=== PATIENT | male | born 1965 | race Two or more races ===

== ENCOUNTER 2019-05-04 06:17 | Day surgery (SDC) | payer OTHER ==
[~2019-05-04] VITALS: Ht 170.2 cm; Wt 90.7 kg
[2019-05-04] VITALS (9 sets, daily range): BP systolic 103–134; BP diastolic 70–83
[~2019-05-04 06:17] MED LIST: NKM; ceFAZolin 1gm IVPB IVPB ONE; celeBREX 200mg Cap **SURGERY PATIENTS ONLY ORAL ONE; oxyCONTIN 20mg tab ORAL ONE
--- NOTE | 2019-05-04 07:32 | Pre-Procedure Note/Attestation ---
Pre-Procedure Note/Attestation Complete Prior to Procedure Planned Procedure: right Procedure Narrative: knee arthroscopy, possible menisectomy, synovectomy Indications for Procedure Pre-Operative Diagnosis: left knee internal deragment Attestation I attest that I discussed the nature of the procedure; its benefits; risks and complications; and alternatives (and the risks and benefits of such alternatives ), prior to the procedure, with the patient (or the patient's legal financial foundations representative). I attest that, if there was a reasonable possibility of needing a blood transfusion, the patient (or the patient's legal financial foundations representative) was given the [facility] standardized written summary, pursuant to the Ervin Isai Blood Safety Act ([place] Health and Safety Code # 1645, as amended). I attest that I re-evaluated the patient just prior to the surgery and that there has been no change in the patient's H&P, except as documented below: Hudson Melchor MD May 04, 2019 07:32
--- NOTE | 2019-05-04 07:32 | Operative Note - PDOC ---
Operative Note Operative Note Pre-op Diagnosis: left knee internal deragment Procedure: see op report Post-op Diagnosis: same as pre-op plus Operative Findings: consistent w/pre-op dx studies Anesthesia: MAC Specimen: none Complications: none Condition: stable Estimated Blood Loss: none Implant(s) used?: No Hudson Melchor MD May 04, 2019 07:32
[2019-05-04] MEDS ORDERED: LR 1000ml 1,000 ML IVLG SCH (07:43)
--- NOTE | 2019-05-04 07:43 | Anethesia Preoperative Eval ---
Anesthesia Pre-op PMH/ROS General Date of Evaluation: May 04, 2019 Anesthesiologist: Heather ASA Score: ASA 2 Mallampati Score Class I : Soft palate, uvula, fauces, pillars visible Class II: Soft palate, uvula, fauces visible Class III: Soft palate, base of uvula visible Class IV: Only hard plate visible Mallampati Classification: Class III Surgeon: Ruiz Diagnosis: right knee pain Surgical Procedure: right knee athroscopy Anesthesia History: none Family History: no anesthesia problems Allergies: Coded Allergies: No Known Allergies (Unverified , 05/01/19) Medications: see eMAR Patient NPO?: Yes NPO Date: May 03, 2019 NPO Time: 22:00 Past Medical History Cardiovascular: Denies: HTN, CAD, MT, valve dz, arrhythmia, other Pulmonary: Denies: asthma, COPD, NICK, other Gastrointestinal/Genitourinary: Reports: GERD; Denies: CRI, ESRD, other Neurologic/Psychiatric: Denies: dementia, CVA, depression/anxiety, TIA, other Endocrine: Denies: DM, hypothyroidism, steroids, other HEENT: Denies: cataract (L), cataract (R), glaucoma, [place] (L), [place] (R), other Hematology/Immune: Denies: anemia, DVT, bleeding disorder, other Musculoskeletal/Integumentary: Denies: OA, RA, DJD, DDD, edema, other Other: obesity PSxH Narrative: right corneal transplant Anesthesia Pre-op Phys. Exam Physician Exam Last Vital Signs Date Time Temp Pulse Resp B/P (MAP) Pulse Ox O2 Delivery O2 Flow Rate FiO2 05/04/19 07:15 Room Air 05/04/19 07:06 97.8 54 18 123/70 95 Constitutional: NAD, other - bulging left eye=baseline as per patient Cardiovascular: RRR Respiratory: CTA Airway Exam Mallampati Score: Class III MO: limited ROM: limited Anesthesia Pre-op A/P Labs see chart Studies Pre-op Studies: EKG - sr Risk Assessment & Plan Assessment: ASA II Plan: GA Status Change Before Surgery: No Pre-Antibiotics Drug: Ancef 2g Given Within 1 Hr of Incision: Yes Monse Pollack MD May 04, 2019 07:43
[2019-05-04] MEDS ORDERED: Tylenol #3 tab (300mg/30mg) ORAL PRN (07:45)
[2019-05-04] MEDS ORDERED: Metoclopramide 10mg/2ml Inj IVP PRN (07:45)
[2019-05-04] MEDS ORDERED: Hydromorphone 0.5mg/0.5ml inj IVP PRN (07:45)
[2019-05-04] MEDS ORDERED: D5 1/2NS 1,000 ML IV SCH (07:45)
[2019-05-04] MEDS ORDERED: Midazolam 2mg/2ml Inj IVP PRN (07:45)
[2019-05-04] MEDS ORDERED: fentaNYL 100 mcg/2 mL IV PRN (07:45)
[2019-05-04] MEDS ORDERED: Ketorolac 30mg Inj IV PRN (07:45)
[2019-05-04] MEDS ORDERED: HYDROcodone/Acetamin 5/325 tab ORAL PRN (07:45)
[2019-05-04] MEDS ORDERED: HYDROmorphone 1mg/ml Carpuject SUBQ PRN (07:45)
[2019-05-04] MEDS ORDERED: DiphenhydrAMINE 50mg/ml Inj IVP PRN (07:45)
[2019-05-04] MEDS ORDERED: LORazepam Inj 2mg/ml 1ml IV PRN (07:45)
[2019-05-04] MEDS ORDERED: Ketorolac 30mg Inj ONE (08:28)
[2019-05-04] MEDS ORDERED: Duramorph PF 5mg/10ml amp ONE (08:29)
[2019-05-04] MEDS ORDERED: Kenalog-40 1ml Vial ONE (08:29)
[2019-05-04] MEDS ORDERED: Bupivacaine 0.25% Inj 30ml INJ ONE (08:29)
[2019-05-04] MEDS ORDERED: Bupivacaine w/Epi 0.5% 30ml Vial INJ ONE (08:29)
[2019-05-04] MEDS ORDERED: Lidocaine 1% 10mg/ml/Epi 0.005mg/ml 30ml vial INJ ONE (08:30)
[2019-05-04] MEDS ORDERED: fentaNYL 100 mcg/2 mL ONE (08:40)
[2019-05-04] MEDS ORDERED: Propofol 200mg/20ml IV ONE (08:40)
[2019-05-04] MEDS ORDERED: Midazolam 2mg/2ml Inj ONE (08:40)
[2019-05-04] MEDS ORDERED: Lidocaine 1% MPF 10mg/ml 5ml ONE (08:40)
[2019-05-04] MEDS ORDERED: LR 1000ml ONE (09:00)
[2019-05-04] MEDS ORDERED: Sterile Water Irrig 1000ml IRRIG ONE (09:00)
[2019-05-04] MEDS ORDERED: NS Irrig 4000ml IRRIG ONE (09:00)
[2019-05-04] MEDS ORDERED: NS Irrig 1000ml ONE (09:00)
[2019-05-04] MEDS ORDERED: Duramorph PF 5mg/10ml amp EPIDUR ONE (09:19)
--- NOTE | 2019-05-04 09:41 | Immediate Post-Op Evaluation ---
Immediate Post-Op Evalulation Immediate Post-Op Evalulation Procedure: right knee arthroscopy Date of Evaluation: May 04, 2019 Time of Evaluation: 09:44 IV Fluids: 500 Blood Products: 0 Estimated Blood Loss: min Urinary Output: 0 Blood Pressure Systolic: 134 Blood Pressure Diastolic: 83 Pulse Rate: 50 Respiratory Rate: 14 O2 Sat by Pulse Oximetry: 99 Temperature (Fahrenheit): 97.3 Pain Score (1-10): 0 Nausea: No Vomiting: No Complications 0 Patient Status: awake, reacts, patent, none Hydration Status: adequate Drug: Ancef 2g Given Within 1 Hr of Incision: Yes Monse Pollack MD May 04, 2019 09:41
--- NOTE | 2019-05-04 09:42 | 48 Hour Post Anesthesia Eval ---
Post Anesthesia Evaluation Procedure: right knee arthroscopy Date of Evaluation: May 04, 2019 Airway: patent Nausea: No Vomiting: No Pain Intensity: 0 Hydration Status: adequate Cardiopulmonary Status: at baseline Mental Status/LOC: patient returned to baseline Post-Anesthesia Complications: 0 Follow-up care needed: ready to discharge Monse Pollack MD May 04, 2019 09:42
--- NOTE | 2019-05-04 16:15 | Operative Note - Dictated ---
DATE OF OPERATION: 05/04/2019 POSTOPERATIVE DIAGNOSIS: Right knee medial meniscus tear. POSTOPERATIVE DIAGNOSES: 1. Right knee medial meniscus tear. 2. Hypertrophic synovial tissue, medial and lateral patellofemoral compartment. PROCEDURES: 1. Right knee arthroscopic partial medial meniscectomy. 2. Synovectomy, medial and lateral patellofemoral compartment. SURGEON: Hudson Melchor M.D. ANESTHESIA: MAC with local. INDICATION FOR PROCEDURE: The patient is a pleasant 54-year-old gentleman, who had significant injury to the right knee. He had evidence of our concerns regarding meniscal tear, failed conservative treatment, elected to undergo right knee diagnostic arthroscopy and possible medial and lateral meniscectomy. Risks, limitations, expectations, complications of procedure were discussed in detail. All questions addressed. DESCRIPTION OF PROCEDURE: After informed consent was obtained, the patient was brought to the operative room, placed under general anesthesia. Right leg was prepped and draped in a sterile manner. Time-out was performed. Inferolateral stab incision was then made. Trocar was introduced into the knee joint. There is hypertrophic synovial tissue in patellofemoral compartment. Medial compartment was entered. There was a tear of the posterior horn of medial meniscus. Partial meniscectomy using combination of biters and shaver was performed down to stable rim of tissue. The synovectomy in the anterior compartment of the medial compartment, intercondylar notch, lateral compartment was performed. ACL was probed, noted to be intact. Lateral compartment was entered free of any meniscal chondral damage. The camera was then placed in the patellofemoral compartment and synovectomy was completed. Once that was done, the instruments were removed. Portal sites were closed with 3-0 Monocryl sutures. Steri-Strips and a sterile dressing were applied. The patient was awoken and taken to recovery room with stable vital signs. ESTIMATED BLOOD LOSS: None. COMPLICATIONS: None. SPECIMENS: None. IMPLANTS: None. Hudson Melchor M.D. DR: SALVADOR JOB#: [id number] CC:
== END 2019-05-04 11:50 | disposition home or self-care (01) ==
LOC: SUR 06:17
DX: S83.241A Other tear of medial meniscus, current injury, right knee, initial encounter (principal); M67.261 Synovial hypertrophy, not elsewhere classified, right lower leg; I10 Essential (primary) hypertension; Z68.31 Body mass index [BMI] 31.0-31.9, adult; K21.9 Gastro-esophageal reflux disease without esophagitis; E66.9 Obesity, unspecified; X58.XXXA Exposure to other specified factors, initial encounter; Y92.9 Unspecified place or not applicable
CPT/HCPCS: 29876; 29881; 97161; J0690; J1885; J2250; J2704; J3010; J3301; J3490; 94003; 94150